=== PATIENT | male | born 1955 | race Caucasian/White ===

== ENCOUNTER 2018-10-20 10:40 | Emergency (ER) | payer MEDICAID ==
[~2018-10-20] VITALS: Ht 177.8 cm; Wt 84.0 kg
[2018-10-20] MEDS ORDERED: KETOROLAC 15MG/ML VIAL IM ONE (15:45)
[2018-10-20 16:07] VITALS: BP 140/100
== END 2018-10-20 16:08 | disposition home or self-care (01) ==
LOC: ER 10:40
DX: M54.9 Dorsalgia, unspecified (principal); Z89.9 Acquired absence of limb, unspecified
CPT/HCPCS: 96372; 99283; J1885